=== PATIENT | male | born 1960 | race Caucasian/White ===

== ENCOUNTER 2024-07-18 15:19 | Emergency (ER) | payer BC ==
[~2024-07-18] VITALS: Ht 182.9 cm; Wt 122.7 kg
[2024-07-18 15:27] VITALS: BP 164/105; TEMP 97.9
[2024-07-18 15:59] LABS: COLLECTION METHOD CLEAN CATCH
[2024-07-18 16:10] LABS: PH 5.5 (5.0-8.5); URINE APPEARANCE CLEAR (CLEAR/HAZY); URINE BLOOD 3+ (NEGATIVE); URINE COLOR YELLOW (YELLOW); URINE GLUCOSE 1+ (NEGATIVE); URINE KETONE TRACE (NEGATIVE); URINE NITRATE NEGATIVE (NEGATIVE); URINE PROTEIN(semi-quant) 1+ (NEGATIVE); URINE UROBILINOGEN 0.2 E.U/dL (0.2-1.0)
[2024-07-18] MEDS ORDERED: CEPHALEXIN500 M1 PO (16:47)
[2024-07-18 17:11] VITALS: PULSE 79
== END 2024-07-18 17:12 | disposition home or self-care (01) ==
LOC: COL.ER 15:19
PROVIDERS: Emergency Medicine
DX: N39.0 Urinary tract infection, site not specified (principal); N40.1 Benign prostatic hyperplasia with lower urinary tract symptoms; R33.8 Other retention of urine

== ENCOUNTER 2024-08-26 13:48 | Day surgery (SDC) | payer BC ==
--- NOTE | 2024-08-25 15:41 | NUR ---
SW received consult due to concerns for patient not having transportation home after procedure and having a large copay amount per business office. SW called patient to discuss. Patient stated that he does not have anyone to drive him home after procedure but stated he plans to drive himself. Discussed if he has taken pain medications he would not be allowed to drive himself. Patient stated he does not have concerns of requiring pain medication. Discussed concern of large amount quoted to patient by business office. Patient stated he has a $7,500 deductible for his insurance. Patient encouraged to call his insurance and check to see how much has been applied to his deductible. No further concerns at this time.
[~2024-08-26] VITALS: Ht 182.9 cm; Wt 126.1 kg
[2024-08-26] VITALS (10 sets, daily range): BP systolic 107–143; BP diastolic 57–85; PULSE 52–79; TEMP 97.8–98.4
[~2024-08-26 13:48] MED LIST: CEPHALEXIN500 M1 PO; LR 1,000 ML IV SCH
[2024-08-26] MEDS ORDERED: HUMALOG100 U/ML SQ (15:44)
[2024-08-26] MEDS ORDERED: BASAGLAR K100 UNIT/1 SQ (15:45)
[2024-08-26] MEDS ORDERED: UROXATRAL10 M1 PO (15:45)
[2024-08-26] MEDS ORDERED: GLUCOPHAGE500 MG/TAB PO (15:45)
[2024-08-26] MEDS ORDERED: KLONOPIN 0.5MG0.5 MG PO (15:46)
[2024-08-26] MEDS ORDERED: Midazolam 2 MG/2 ML VIAL ONE (16:03)
[2024-08-26] MEDS ORDERED: NS 20 ML IV ONE (16:05)
[2024-08-26] MEDS ORDERED: Ondansetron 4 MG/2 ML VIAL ONE (16:53)
[2024-08-26] MEDS ORDERED: dexAMETHasone 10 MG/ML VIAL ONE (16:53)
[2024-08-26] MEDS ORDERED: Ondansetron 4 MG/2 ML VIAL IV PRN ×2 (17:15→17:45)
[2024-08-26] MEDS ORDERED: fentaNYL 50 MCG/ML 1 ML SYRINGE/VIAL [PACU/SDC ONLY] IV PRN (17:15)
[2024-08-26] MEDS ORDERED: Meperidine 50 MG/ML 1 ML VIAL IV PRN (17:15)
[2024-08-26] MEDS ORDERED: HYDROmorphone 1 MG/1 ML SYRINGE [PACU/SDC ONLY] IV PRN (17:15)
[2024-08-26] MEDS ORDERED: hydrALAZINE 20 MG/ML 1 ML VIAL IV PRN (17:15)
[2024-08-26] MEDS ORDERED: Lidocaine 2% (20 MG/ML) 20 ML UROJET UR ONE ×2 (17:20→17:37)
[2024-08-26] MEDS ORDERED: Acetaminophen 325 MG TAB PO PRN (17:45)
[2024-08-26] MEDS ORDERED: NS Irrig Soln 3000 ML SOLN IR PRN (17:45)
[2024-08-26] MEDS ORDERED: Hyoscyamine 0.125 MG Sublingual TAB SL PRN (17:45)
[2024-08-26] MEDS ORDERED: Morphine 4 MG/ML VIAL IV PRN (17:45)
[2024-08-26] MEDS ORDERED: Magnes Hydrox (MOM) 80 MG/ML 30 ML CUP PO PRN (17:45)
--- NOTE | 2024-08-26 18:30 | NUR ---
arrived in room from PACU per bed, alert and oriented, CBI infusing at slow to mod rate, urine is pink in tubing but clearing with CBI, has eliza knot that is CD&I and tension on tubing to right leg, full assessment completed, see interventions for further info, will provide water and denies further needs
--- NOTE | 2024-08-26 19:00 | NUR ---
takes sips of water and tolerates well, urine is more pink now and CBI rate increased
--- NOTE | 2024-08-26 19:30 | NUR ---
urine continues to become more red, CBI increased again,
[2024-08-26] MEDS ORDERED: metFORMIN 500 MG TAB PO SCH (21:00)
[2024-08-26] MEDS ORDERED: Melatonin 3 MG TAB PO PRN (21:00)
[2024-08-26] MEDS ORDERED: Docusate Sodium 100 MG CAP PO SCH (21:00)
--- NOTE | 2024-08-26 22:22 | NUR ---
Patient assessed around 2009. Alert and oriented, and able to make needs known. Denies having pain and discomfort. Peripheral IV to right hand. Denies SOB and dyspnea. LS CTA. HRR. BSAx4. Indwelling tripathi catheter patent. Has CBI running moderate. Output bloody, no clots. Voices no questions, needs, or concerns at this time. In bed with call light within reach. Bed alarm on.
[2024-08-27] VITALS (9 sets, daily range): BP systolic 107–129; BP diastolic 69–75; PULSE 67–83; TEMP 97.5–98.8
--- NOTE | 2024-08-27 06:33 | NUR ---
Continues on CBI, running slow. Ester output, clear, no clots. Received PRN Levsin and Tylenol once this shift as requested. Reports medication helped. Voices no questions, needs, or concerns at this time. In bed with call light within reach.
[2024-08-27] MEDS ORDERED: ALFUZOSIN 10 MG PO SCH (09:00)
[2024-08-27] MEDS ORDERED: clonazePAM 0.5 MG TAB PO SCH (09:00)
[2024-08-27] MEDS ORDERED: 1/2 NS & 20 mEq KCl 1,000 ML IV SCH (09:00)
[2024-08-27] MEDS ORDERED: [UNRECOGNIZED DRUG - OTHER] PO SCH (09:00)
--- NOTE | 2024-08-27 10:19 | NUR ---
Initial visit; Patient very pleasant and states he originally comes from [place], [place] and has been a teacher for a lot of years. He's not quite sure if he has recovered enough to be discharged but thinks he is a little better since he has had care here at [facility].
--- NOTE | 2024-08-27 11:03 | NUR ---
PATIENT ALERT AND ORIENTED X4. VSS. PATIENT HERE FOR TURP. CBI RUNNING SLOW WITH PINK OUTPUT. IV TO RIGHT HAND INT AND FLUSHES WELL. PATIENT DENIES ANY BLADDER SPASMS.
--- NOTE | 2024-08-27 11:05 | NUR ---
NG PRIME AND PULLED. 6 CUP TRIAL STARTED. PATIENT TOLERATED WELL.
--- NOTE | 2024-08-27 13:15 | NUR ---
ELIZABETH met with patient to complete initial assessment for discharge planning. ELIZABETH spoke with patient on 08/25 via phone prior to surgery to discuss concerns from surgeon related to co pay amounts and transportation. Patient verified that he lives alone in [place], [place], sees Dr. Jesse Campbell as his PCP and uses [facility] in [place]. Patient reports his only DME is [employer]. Patient lists his sister Janett ([phone]) as his emergency contact. Patient denies having completed a DPOA but states he's "talked things over with his family" and has the paperwork at home to complete. Patient reports that he will drive himself home at discharge due to not taking any narcotics and will have his catheter removed prior to discharge. Patient has met with Jose Enrique in financial counseling to discuss co pay arrangements. Discharge plan: Home
--- NOTE | 2024-08-27 15:57 | NUR ---
DISCHARGE INSTRUCTIONS PROVIDED. PATIENT EDUCATION GIVEN. IV DC'D. FOLLOW UP APPOINTMENT DISCUSSED. MEDICATIONS REVIEWED. PATIENT DENIES ANY QUESTIONS OR CONCERNS. PATIENT ESCORTED OUT VIA WHEELCHAIR.
== END 2024-08-27 15:58 | disposition home or self-care (01) ==
LOC: SDCO 13:48 → SURG 18:30 → SDCO 08-27 15:58
DX: N40.1 Benign prostatic hyperplasia with lower urinary tract symptoms (principal); R39.12 Poor urinary stream; R35.1 Nocturia; R39.14 Feeling of incomplete bladder emptying; G47.33 Obstructive sleep apnea (adult) (pediatric)
CPT/HCPCS: OP; J0690; J1100; J2250; J2405; J2704; J7120